=== PATIENT | male | born 1985 | race Caucasian/White ===

== ENCOUNTER 2024-02-03 17:33 | Emergency (ER) | payer OTHER ==
[~2024-02-03] VITALS: Ht 170.2 cm; Wt 70.3 kg
[2024-02-03 17:38] VITALS: BP 118/86; PULSE 96; RESP 16; TEMP 97.6; O2SAT 95
[2024-02-03 17:56] VITALS: BP 118/86; PULSE 96; RESP 16; TEMP 97.6; O2SAT 95
[2024-02-03] MEDS: LORazepam 1 MG TAB PO ONE (18:01)
[2024-02-03 18:32] LABS: BASOPHILS % (AUTO) 0.4 % (0.0-2.0); EOSINOPHILS % (AUTO) 0.5 % (0.0-4.0); HEMATOCRIT 48.2 % (36-52); HEMOGLOBIN 16.4 g/dL (12.0-18.0); LYMPHOCYTES # (AUTO) 0.9 K/uL (2.0-11.5); LYMPHOCYTES % (AUTO) 10.4 % (20.5-51.1); MEAN CORPUSCULAR HEMOGLOBIN 31 pg (27-31); MEAN CORPUSCULAR HGB CONC 34 g/dL (33-37); MEAN CORPUSCULAR VOLUME 90.7 fL (80-94); MONOCYTES # (AUTO) 0.4 K/uL (0.8-1.0); MONOCYTES % (AUTO) 4.1 % (1.7-9.3); NEUTROPHILS # (AUTO) 7.6 K/uL (1.8-7.7); NEUTROPHILS % (AUTO) 84.6 % (42.2-75.2); PLATELET COUNT (AUTO) 293 K/uL (140-450); RED BLOOD CELL COUNT(AUTO) 5.31 MIL/uL (4.20-6.10); RED CELL DISTRIBUTION WIDTH 13.6 % (11.6-13.7)
[2024-02-03 18:49] LABS: ANION GAP 10.7 (8-16); CARBON DIOXIDE 28.8 mmol/L (21-32); CREATININE 1.3 mg/dL (0.6-1.3); POTASSIUM 4.5 mmol/L (3.5-5.1)
[2024-02-03] MEDS ORDERED: TOPI50TA99 PO (19:00)
[2024-02-03] MEDS ORDERED: METOPROLOL SUCCINATE 50 MG TABER PO ONE ×2 (19:22→19:23)
[2024-02-03] MEDS: TOPIRAMATE 25 MG TAB PO ONE (19:28)
== END 2024-02-03 19:30 | disposition home or self-care (01) ==
LOC: MED 17:33
DX: G40.509 Epileptic seizures related to external causes, not intractable, without status epilepticus (principal); Z79.899 Other long term (current) drug therapy
CPT/HCPCS: 36415; 80048; 82948; 85025; 93005; 99284